=== PATIENT | female | born 1945 | race Two or more races ===

== ENCOUNTER → 2021-10-29 | Emergency (ER) | payer MEDICAID ==
[~2021-10-29] VITALS: Ht 152.4 cm; Wt 66.2 kg
[~2021-10-29] MED LIST: CIPR-262 PO; TDAP [DIPH/PERTUSSIS/TET] 0.5 ML VIAL IM ONE
[2021-10-29 19:21] VITALS: BP 155/62
--- NOTE | 2021-10-29 20:27 | NUR ---
[facility] ETA 2100
--- NOTE | 2021-10-29 20:45 | NUR ---
PRESSURE DRESSING APPLIED
--- NOTE | 2021-10-29 21:00 | NUR ---
DUE MEDS GIVEN. REPORT GIVEN TO [facility] ALTAMIRAN[facility]. CALLED [facility] AND GAVE REPORT TO KRIS
--- NOTE | 2021-10-29 21:13 | NUR ---
PATIENT [facility]
--- NOTE | 2021-10-29 21:14 | NUR ---
Patient discharged to home in stable condition. Written and verbal after care instructions given. Patient verbalizes understanding of instruction.
== END | disposition home or self-care (01) ==
LOC: ER 18:58
DX: S92.492B Other fracture of left great toe, initial encounter for open fracture (principal); S92.592B Other fracture of left lesser toe(s), initial encounter for open fracture; I13.2 Hypertensive heart and chronic kidney disease with heart failure and with stage 5 chronic kidney disease, or end stage renal disease; E11.22 Type 2 diabetes mellitus with diabetic chronic kidney disease; N18.6 End stage renal disease; I50.9 Heart failure, unspecified; D63.1 Anemia in chronic kidney disease; G20 Parkinson's disease; Z99.2 Dependence on renal dialysis; Z86.79 Personal history of other diseases of the circulatory system; Z88.8 Allergy status to other drugs, medicaments and biological substances; Z79.899 Other long term (current) drug therapy; V98.8XXA Other specified transport accidents, initial encounter; Y93.89 Activity, other specified; Y92.89 Other specified places as the place of occurrence of the external cause; Y99.8 Other external cause status
CPT/HCPCS: 73660-TC; 90715